=== PATIENT | female | born 1965 | race African-American/Black ===

== ENCOUNTER 2018-06-05 23:46 | Emergency (ER) | payer SELFPAY ==
[~2018-06-05] VITALS: Ht 175.3 cm; Wt 67.1 kg
[2018-06-05 23:50] VITALS: BP 134/76
== END 2018-06-06 00:39 | disposition home or self-care (01) ==
LOC: ER 23:48
DX: F12.10 Cannabis abuse, uncomplicated (principal); E03.9 Hypothyroidism, unspecified
CPT/HCPCS: A4606; Z7610